=== PATIENT | female | born 1985 | race Caucasian/White ===

== ENCOUNTER → 2017-02-08 | Outpatient (CLI) | payer OTHER | LOC: HPND 08:03 | PROVIDERS: ATTEND Obstetrics & Gynecology | DX: O35.2XX0 Maternal care for (suspected) hereditary disease in fetus, not applicable or unspecified (principal); Z3A.00 Weeks of gestation of pregnancy not specified | CPT/HCPCS: 36416; 76813 ==

== ENCOUNTER → 2017-04-13 | Outpatient (CLI) | payer OTHER | LOC: HPND 07:53 | PROVIDERS: ATTEND Obstetrics & Gynecology | DX: O35.2XX0 Maternal care for (suspected) hereditary disease in fetus, not applicable or unspecified (principal) | CPT/HCPCS: 76816; 76825; 76827; 93325 ==

== ENCOUNTER 2017-08-11 18:59 | Inpatient (IN) | payer OTHER ==
[2017-08-11] VITALS (9 sets, daily range): BP systolic 121–164; BP diastolic 61–84; PULSE 58–82; RESP 18
[~2017-08-11] VITALS: Ht 154.9 cm; Wt 101.0 kg
[2017-08-11] MEDS ORDERED: LACTATED RINGER'S 1000 ML INJ 1,000 ML IV SCH (19:39)
[2017-08-11] MEDS ORDERED: LACTATED RINGER'S 1000 ML INJ 1,000 ML IV PRN (19:39)
[2017-08-11] MEDS ORDERED: OXYTOCIN 30 UNITS-500ML PREMIX 500 ML IV SCH (19:45)
[2017-08-11] MEDS ORDERED: OXYTOCIN 30 UNITS-500ML PREMIX 500 ML IV ONE (19:45)
[2017-08-11] MEDS ORDERED: SODIUM CHLORID 0.9% 500 ML INJ 500 ML IV PRN (19:45)
[2017-08-11] MEDS ORDERED: LIDOCAINE HCL 1% 50 ML VIAL I-DERMAL PRN (19:45)
[2017-08-11] MEDS ORDERED: LIDOCAINE HCL 1% 50 ML VIAL INFIL PRN (19:45)
[2017-08-11] MEDS ORDERED: CITRIC ACID-SODIUM CITRATE LIQ 30 ML UDC PO SCH (19:45)
[2017-08-11] MEDS ORDERED: MINERAL OIL 10 ML VIAL TOPICAL PRN (19:45)
[2017-08-11] MEDS ORDERED: SODIUM CHLOR 0.9% 1000 ML INJ 1,000 ML IV PRN (19:59)
--- NOTE | 2017-08-11 20:18 | HHI.HP ---
HPI Chief Complaint oligohydramnios Travel History International Travel<30 Days: No Contact w/Intl Traveler<30Days: No Known Affected Area: No History of Present Illness HPI 31 yo G1 with iup 40wbeing admitted for iol for oligohydramnios and elevated UA dopplers. She was also noted to have BP above her baseline, 130/80, tr protein, and has headaches over last 2 days. no visual changes or ruq pain. PNC initiated at 9 weeks. She has a fam hx of DS and a sister w multiple anomalies at . 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 [employer] Alcohol Use: No Tobacco Use: No Substance Abuse: No Allergies-Medications (Allergen,Severity, Reaction): Coded Allergies: No Known Allergies (Unverified , 08/11/17) Review of Systems General / Constitutional: No: Fever, Weight Gain, Chills, Other Eyes: No: Diploplia, Blurred Vision, Visual changes, Pain, Photophobia HENT: Headaches, No: Vertigo, Lightheadedness Cardiovascular: No: Irregular Rhythm, Chest Pain or Discomfort, Palpitations, Tachycardia, Syncope, Varicosities, Edema, Cyanosis Respiratory: No: Cough, Short of Breath, Other Gastrointestinal: No: Nausea, Vomiting, Diarrhea Genitourinary: No: Decreased Urinary Output, Oliguria Musculoskeletal: No: Limited ROM, Weakness, Cramping, Edema, Pain Skin: No Rash, No Itching, No Dryness, No Lumps, No Change in Pigmentation, No Change in Nails, No Alopecia, No Lesions Neurologic: No: Weakness, Dizziness, Syncope, Focal Abnormalities, Coordination Problem, Headache, Slurred Speech, Seizures Psychiatric: No: Depression, Suicidal Ideations, Homicidal Ideation Endocrine: No: Heat Intolerance, Cold Intolerance, Polydipsia, Polyuria, Other Physical Exam Narrative GENERAL: Well-nourished, well-developed patient. SKIN: Warm and dry. HEAD: Normocephalic and atraumatic. EYES: No scleral icterus. No injection or drainage. ENT: No nasal drainage noted. Mucous membranes pink. Airway patent. NECK: Supple, trachea midline. No JVD. CARDIOVASCULAR: Regular rate and rhythm without murmurs, gallops, or rubs. RESPIRATORY: Breath sounds equal bilaterally. No accessory muscle use. BREASTS: defer ABDOMEN/GI: Abdomen soft, non-tender, bowel sounds present, no rebound, no guarding Gravid to 40weeks size Fundal Height: [-] GENITOURINARY: External Genitalia: intact and normal in appearance BUS glands: [-] Cervix: 3-4/50/-3 Dilatation: [-] Effacement: [-] Station: [-] Presentation: [facility] Membranes: [intact Uterine Contractions: [-] FHT's: bpp 6/8 in office for low kary Category: [-] Baseline: [-] Reactive: [-] Variability: [-] Decels: [-] EXTREMITIES: No cyanosis or edema. BACK: Nontender without obvious deformity. No CVA tenderness. NEUROLOGICAL: Awake and alert. Motor and sensory grossly within normal limits. Five out of 5 muscle strength in all muscle groups. Normal speech. Caprini VTE Risk Assessment Caprini VTE Risk Assessment: No/Low Risk (score <= 1) Caprini Risk Assessment Model Point Value = 1 Point Value = 2 Point Value = 3 Point Value = 5 Age 41-60 Minor surgery BMI > 25 kg/m2 Swollen legs Varicose veins or History of unexplained or recurrent spontaneous Oral contraceptives or hormone replacement Sepsis (< 1 month) Serious lung disease, including pneumonia (< 1 month) Abnormal pulmonary function Acute myocardial infarction Congestive heart failure (< 1 month) History of inflammatory bowel disease Medical patient at bed rest Age 61-74 Arthroscopic surgery Major open surgery (> 45 min) Laparoscopic surgery (> 45 min) Malignancy Confined to bed (> 72 hours) Immobilizing plaster cast Central venous access Age >= 75 History of VTE Family history of VTE Factor V Leiden Prothrombin [id number] Lupus anticoagulant Anticardiolipin antibodies Elevated serum homocysteine Heparin-induced thrombocytopenia Other congenital or acquired thrombophilia Stroke (< 1 month) Elective arthroplasty Hip, pelvis, or leg fracture Acute spinal cord injury (< 1 month) Prophylaxis Regimen Total Risk Factor Score Risk Level Prophylaxis Regimen 0-1 Low Early ambulation 2 Moderate Order ONE of the following: *Sequential Compression Device (SCD) *Heparin 5000 units SQ BID 3-4 Higher Order ONE of the following medications: *Heparin 5000 units SQ TID *Enoxaparin/Lovenox 40 mg SQ daily (WT < 150 kg, CrCl > 30 mL/min) *Enoxaparin/Lovenox 30 mg SQ daily (WT < 150 kg, CrCl > 10-29 mL/min) *Enoxaparin/Lovenox 30 mg SQ BID (WT < 150 kg, CrCl > 30 mL/min) AND/OR *Sequential Compression Device (SCD) 5 or more Highest Order ONE of the following medications: *Heparin 5000 units SQ TID (Preferred with Epidurals) *Enoxaparin/Lovenox 40 mg SQ daily (WT < 150 kg, CrCl > 30 mL/min) *Enoxaparin/Lovenox 30 mg SQ daily (WT < 150 kg, CrCl > 10-29 mL/min) *Enoxaparin/Lovenox 30 mg SQ BID (WT < 150 kg, CrCl > 30 mL/min) AND *Sequential Compression Device (SCD) Data Data Vital Signs Reviewed: Yes Orders Orders Admit To Inpatient (08/11/17 ) Vital Signs (Adult) .Per protocol (08/11/17 19:39) Activity Oob Ad Lizzette (08/11/17 19:39) Heart (08/11/17 19:39) Amnioinfusion (08/11/17 19:39) Urinary Catheter Management .ONCE (08/11/17 19:39) Lactated Ringer's 1000 Ml Inj (Lr 1000 M (08/11/17 19:39) Lactated Ringer's 1000 Ml Inj (Lr 1000 M (08/11/17 19:39) Sodium Chlorid 0.9% 500 Ml Inj (Ns 500 M (08/11/17 19:45) Sodium Chlor 0.9% 1000 Ml Inj (Ns 1000 M (08/11/17 19:59) Lidocaine 1% Inj (50 Ml) (Xylocaine 1% I (08/11/17 19:45) Citric Acid-Sodium Citrate Liq (Bicitra (08/11/17 19:45) Fentanyl Inj (Fentanyl Inj) (08/11/17 19:45) Fentanyl Inj (Fentanyl Inj) (08/11/17 19:45) Complete Blood Count With Diff (08/11/17 19:39) Hold Clot (08/11/17 19:39) Abo/Rh Blood Type (08/11/17 19:39) Urinalysis - C+S If Indicated (08/11/17 19:39) Drug Screen, Random Urine (08/11/17 19:39) Resp Oxygen Non Rebreathe Mask (08/11/17 ) ^ Epidural / Intrathecal Infus (08/11/17 19:39) Oxytocin 30 Units-500ml Premix (Pitocin (08/11/17 19:45) Lidocaine 1% Inj (50 Ml) (Xylocaine 1% I (08/11/17 19:45) Light Mineral Oil (Muri-Lube Oil) (08/11/17 19:45) ^ Non Stress Test (08/11/17 19:39) Response To Medication .Post New Med Administration, Reaction (08/11/17 19:39) ^ Discontinue Medication (08/11/17 19:39) Oxytocin 30 Units-500ml Premix (Pitocin (08/11/17 19:45) Inpatient Certification (08/11/17 ) Specimen To Be Collected PRN (08/11/17 19:39) Specimen To Be Collected PRN (08/11/17 19:39) Comprehensive Metabolic Panel (08/11/17 19:42) Uric Acid (08/11/17 19:42) Protein Creat Ratio, Random Ur (08/11/17 19:42) Group B Strep: Negative Assessment/Plan Problem List: (1) Labor and delivery, indication for care ICD Codes: O75.9 - Complication of labor and delivery, unspecified (2) Oligohydramnios ICD Codes: O41.00X0 - Oligohydramnios, unspecified trimester, not applicable or unspecified Qualifiers: Assessment and Plan 31 yo G1 here for iol for oligohydramnios and elevated umbilical artery dopplers at term, edc 08/11/17 1) IOL - will start pitocin and arom 2) elevated bp above baseline -will order pih labs and p:c ratio 3) gbs neg 4) fetus cephalic male, efw at 33 w was 38%Teresita Sanchez MD Aug 11, 2017 20:18
[2017-08-11] MEDS ORDERED: OXYTOCIN 30 UNITS/NS 500ML PREMIX IV SCH (20:30)
[2017-08-11 20:45] LABS: AUTOMATED NEUTROPHIL # 11.5 TH/MM3 (1.8-7.7); BASOPHIL % 0.3 % (0.0-2.0); EOSINOPHIL % 0.2 % (0.0-4.0); HEMATOCRIT 35.7 % (35.0-46.0); HEMO FLAGS DIFF FINAL; LYMPHOCYTE # 2.2 TH/MM3 (1.0-4.8); MEAN CELL VOLUME 89.3 FL (80.0-100.0); MEAN CORPUSCULAR HEMOGLOBIN 29.1 PG (27.0-34.0); MEAN CORPUSCULAR HGB CONC 32.7 % (32.0-36.0); MONO % 5.5 % (0.0-8.0); PLATELET COUNT 275 TH/MM3 (150-450); WHITE BLOOD COUNT 14.6 TH/MM3 (4.0-11.0)
[2017-08-11 20:47] LABS: BACTERIA, URINE OCC /hpf; BLOOD, URINE MOD (NEG); COMMENT (UR) CULTURE INDICATED; CULTURE IF INDICATED CULTURE INDICATED; GLUCOSE,URINE NEG (NEG); KETONE, URINE TRACE mg/dL (NEG); MUCUS URINE FEW /lpf (OCC); NITRITE,URINE NEG (NEG); SQUAMOUS EPITHELIAL CELL URINE 4 /hpf (0-5); URINE COLOR YELLOW (YELLW/STRAW)
[2017-08-11 21:00] LABS: ALT (GPT) 12 U/L (10-53); ANION GAP 9 MEQ/L (5-15); AST (GOT) 15 U/L (15-37); BICARBONATE 23.2 MEQ/L (21.0-32.0); BLOOD UREA NITROGEN 10 MG/DL (7-18); CHLORIDE 103 MEQ/L (98-107); GLOMERULAR FILTRATION RATE 103 ML/MIN (>89); POTASSIUM 3.6 MEQ/L (3.5-5.1); SODIUM (NA) 135 MEQ/L (136-145)
[2017-08-11 21:03] LABS: ALKALINE PHOSPHATASE 318 U/L (45-117); TOTAL BILIRUBIN ADULT 0.2 MG/DL (0.2-1.0)
[2017-08-11] MEDS ORDERED: NIFEdipine 10 MG CAP ONE (23:18)
[2017-08-11] MEDS ORDERED: NIFEdipine 10 MG CAP PO ONE (23:30)
[2017-08-12] VITALS (61 sets, daily range): BP systolic 68–170; BP diastolic 30–87; PULSE 52–91; RESP 16–20; TEMP 98–98.8; O2SAT 96–100
--- NOTE | 2017-08-12 07:56 | PD.LABORPN ---
Subjective Subjective requesting pain meds Objective Vital Signs Vital Signs Date Time Temp Pulse Resp B/P (MAP) Pulse Ox O2 Delivery O2 Flow Rate FiO2 08/12/17 07:35 98.4 18 08/12/17 07:34 56 160/79 (106) 08/12/17 03:42 98.2 18 08/12/17 03:42 75 156/83 (107) 08/12/17 01:34 98.1 18 08/12/17 01:31 68 158/79 (105) 08/12/17 00:44 18 08/12/17 00:43 65 154/73 (100) 08/12/17 00:12 64 153/80 (104) Objective Pelvic Exam: Cervix: [-] Dilatation: [-] 6-7 Effacement: [-] 80 Station: [-] -2 Presentation: [-] vtx Membranes: [intact or ruptured] arom clear, scant Uterine Contractions: [-] q3min FHT's: Category: [-] 1 Baseline: [-] Reactive: [-] R Variability: [-] good Decels: [-] Weeks Gestation: 40 Gest Age Assessed Date: Aug 12, 2017 Gest Age Assessed Time: 07:54 Pt started active labor?: Yes Active labor start date: Aug 12, 2017 Active labor start time: 07:54 Medical induction of labor?: Yes Medical induction start date: Aug 11, 2017 Medical induction start time: 21:00 Artificial rupture of membrane: Yes Artificial ROM date: Aug 12, 2017 Artifical ROM time: 07:40 Assessment/Plan Problem List: (1) Labor and delivery, indication for care ICD Codes: O75.9 - Complication of labor and delivery, unspecified (2) Oligohydramnios ICD Codes: O41.00X0 - Oligohydramnios, unspecified trimester, not applicable or unspecified Qualifiers: (3) state, incidental ICD Codes: Z33.1 - state, incidental Assessment and Plan continue pitocin, at 6mu now, arom clear, analgesia prn anticipate Noemi Childress MD Aug 12, 2017 07:56
[2017-08-12] MEDS ORDERED: fentaNYL 2MCG-BUPIV 0.125% INJ 100 ML ONE (08:07)
[2017-08-12] MEDS ORDERED: ePHEDrine/NS 25 MG/5 ML SYR ONE (08:07)
[2017-08-12] MEDS ORDERED: ePHEDrine/NS 25 MG/5 ML SYR IV PUSH PRN (09:30)
[2017-08-12] MEDS ORDERED: fentaNYL 2MCG-BUPIV 0.125% 100 ML EPIDURAL SCH (09:30)
[2017-08-12] MEDS ORDERED: NO SYSTEM NARCOTICS PRN (09:30)
[2017-08-12] MEDS ORDERED: DO NOT ADMINISTER ANTICOAGULANTS PRN (09:30)
[2017-08-12] MEDS ORDERED: ceFAZolin 2 GM PREMIX 50 ML IV SCH (13:15)
[2017-08-12] MEDS ORDERED: LACTATED RINGER'S 1000 ML IV ONE (13:15)
[2017-08-12] MEDS ORDERED: OXYTOCIN 30 UNITS/NS 500ML PREMIX IV SCH (13:15)
[2017-08-12] MEDS ORDERED: CITRIC ACID-SODIUM CITRATE LIQ 30 ML UDC PO SCH (13:15)
[2017-08-12] MEDS ORDERED: EPIDURAL-DO NOT ADMINISTER ANTICOAGULANTS PRN (13:40)
[2017-08-12] MEDS ORDERED: EPIDURAL-NALOXONE HCL 0.4 MG/ML AMP IV PUSH PRN (13:40)
[2017-08-12] MEDS ORDERED: EPIDURAL-NO SYSTEMIC NARCOTICS PRN (13:40)
[2017-08-12] MEDS ORDERED: EPIDURAL-DIPHENHYDRAMINE HCL 50 MG CAP PO PRN (13:40)
[2017-08-12] MEDS ORDERED: EPIDURAL-DIPHENHYDRAMINE HCL 50 MG/ML VIAL IV PUSH PRN (13:40)
[2017-08-12] MEDS ORDERED: LACTATED RINGER'S 1000 ML IV SCH (13:45)
[2017-08-12] MEDS ORDERED: SIMETHICONE 80 MG CHEWABLE TAB PO PRN (14:00)
[2017-08-12] MEDS ORDERED: SODIUM CHLORIDE 0.9% FLUSH 10 ML FLUSH IV FLUSH PRN (14:00)
[2017-08-12] MEDS ORDERED: KETOROLAC TROMETHAMINE 60 MG/2 ML (IM) VIAL IM PRN (14:00)
[2017-08-12] MEDS ORDERED: ACETAMINOPHEN 325 MG TAB PO PRN (14:00)
[2017-08-12] MEDS ORDERED: oxyCODONE/ACETAMINOPHEN 5 MG/325 MG TAB PO PRN (14:00)
[2017-08-12] MEDS ORDERED: ZOLPIDEM TARTRATE 5 MG TAB PO PRN (14:00)
[2017-08-12] MEDS ORDERED: OXYTOCIN 30 UNITS-500ML PREMIX 500 ML IV ONE (14:00)
[2017-08-12] MEDS ORDERED: ONDANSETRON HCL 4 MG/2 ML VIAL IV PUSH PRN (14:00)
--- NOTE | 2017-08-12 14:07 | PD.OB.DELI ---
Procedure Note Section Procedure Pre Op Diagnosis: (1) Oligohydramnios (2) state, incidental Post Op Diagnosis: Performed by Noemi Davis Procedure: Primary Low Transverse Sec Indication for delivery: Nonreassuring heart tracing Previous condition: None Informed consent obtained: For procedure Confirmed correct: Time-out taken Anesthesia: Epidural Urinary catheter: Inserted using sterile technique, ml urine output (400) Sterile preparation: Duraprep Position: Supine with wedge to right side Operative Features Skin Incision: Pfannenstiel Uterine Incision: Low transverse w/knife / scissors Membranes Ruptured: Previously Presentation: Vertex Delivery date: Aug 12, 2017 Delivery time: 13:34 : Male One Minute : 8 Five Minute : 9 Weight: 7-2 Status of : Viable Placenta delivered: Intact Estimated blood loss: 500cc Procedure tolerated: Well Maternal Condition: Stable Condition: Stable Procedure in detail see dictation Noemi Davis MD Aug 12, 2017 14:07
--- NOTE | 2017-08-12 14:53 | MP ---
cc: REX DAVIS DATE OF SURGERY: 08/12/2017 PREOPERATIVE DIAGNOSIS Intrauterine at 40 weeks, non-reassuring heart rate. POSTOPERATIVE DIAGNOSIS Intrauterine at 40 weeks, non-reassuring heart rate. PROCEDURE Primary lower segment transverse section via Pfannenstiel skin incision. SURGEON Dr. Davis. ANESTHESIA Epidural. FLUIDS 1000 cc crystalloid. ESTIMATED BLOOD LOSS 500 cc. URINE OUTPUT 400 cc clear yellow at the end of the procedure. FINDINGS A live male was delivered vertex presentation, Apgars 8 at one minute and 9 at five minutes. weight was 7 pounds 2 ounces. A large caput was noted at 9 cm cervical dilatation. DETAILS OF PROCEDURE The patient was taken to the operating room where epidural anesthesia was found to be adequate. She was then prepped and draped in the normal sterile fashion in the dorsal supine position with a leftward tilt. A Pfannenstiel skin incision was made with a scalpel and carried down to the underlying layer of fascia. The fascia was nicked in the midline. The incision was extended laterally with Zhao scissors. Attention was turned to the inferior aspect of the incision which was grasped with Jayde clamps, elevated and the rectus muscle dissected off sharply. Attention was turned to the superior aspect of the incision which was grasped with Jayde clamps, elevated and the rectus muscle dissected off sharply. The rectus muscles were in the midline. The peritoneum was identified, grasped between two Marcela clamps, elevated and entered sharply with Metzenbaum scissors. This incision was extended superiorly and inferiorly with good visualization of the bladder. The bladder blade was inserted. The vesicouterine peritoneum was identified, grasped with pickups and entered sharply with Metzenbaum scissors. This incision extended laterally. A bladder flap was created digitally. The lower uterine segment was incised in a transverse fashion. This incision was extended laterally with bandage scissors. The vertex was then delivered. A large caput was noted. The oral and nasopharynx were bulb suctioned. The shoulders were delivered atraumatically. Delayed cord clamping was performed for 45 seconds. The cord was clamped x2 and cut. The was handed off to the awaiting nurse. The placenta was delivered manually and sent for donation. The uterus was cleared of all clots and debris. The uterine incision was repaired in two layers with #1 Vicryl. Hemostasis was assured. The gutters were cleared of all clots and debris. The fascia was repaired in a running fashion with 0 Vicryl. The skin was closed with magdalene. A pressure dressing was applied. The sponge, lap, needle and instrument counts were correct x3. The patient was transferred to the recovery room in stable condition. MD RENATO Xiong/MEET /2:08 PM /2:43 PM
[2017-08-12] MEDS: LACTATED RINGER'S 1000 ML INJ 1,000 ML IV SCH (19:00)
[2017-08-12] MEDS: SODIUM CHLORIDE 0.9% FLUSH 10 ML FLUSH IV FLUSH SCH (19:42)
[2017-08-12] MEDS ORDERED: NIFEdipine 10 MG CAP PO ONE (20:15)
[2017-08-12] MEDS: IBUPROFEN 600 MG TAB PO PRN (22:47)
[2017-08-12] MEDS: oxyCODONE/ACETAMINOPHEN 5 MG/325 MG TAB PO PRN (22:47)
[2017-08-13] MEDS ORDERED: OXYTOCIN 30 UNITS-500ML PREMIX 500 ML IV PRN
[2017-08-13 00:26] VITALS: BP 106/55; PULSE 61; RESP 18; TEMP 98.6
[2017-08-13] MEDS: IBUPROFEN 600 MG TAB PO PRN ×3 (04:20→20:44)
[2017-08-13] MEDS: oxyCODONE/ACETAMINOPHEN 5 MG/325 MG TAB PO PRN ×3 (04:20→20:44)
[2017-08-13] MEDS: LACTATED RINGER'S 1000 ML INJ 1,000 ML IV SCH (05:00)
[2017-08-13 06:08] LABS: AUTOMATED NEUTROPHIL # 13.3 TH/MM3 (1.8-7.7); BASOPHIL % 0.2 % (0.0-2.0); EOSINOPHIL % 0.1 % (0.0-4.0); HEMATOCRIT 29.2 % (35.0-46.0); HEMO FLAGS DIFF FINAL; LYMPH % 13.7 % (9.0-44.0); LYMPHOCYTE # 2.3 TH/MM3 (1.0-4.8); MEAN CELL VOLUME 90.2 FL (80.0-100.0); MEAN CORPUSCULAR HEMOGLOBIN 29.8 PG (27.0-34.0); MEAN CORPUSCULAR HGB CONC 33.1 % (32.0-36.0); MONO % 5.7 % (0.0-8.0); NEUT % 80.3 % (16.0-70.0); PLATELET COUNT 237 TH/MM3 (150-450); RED BLOOD COUNT 3.24 MIL/MM3 (4.00-5.30); RED CELL DISTRIBUTION WIDTH 12.9 % (11.6-17.2); WHITE BLOOD COUNT 16.6 TH/MM3 (4.0-11.0)
[2017-08-13 08:00] VITALS: BP 119/64; PULSE 56; RESP 18; TEMP 98
--- NOTE | 2017-08-13 08:55 | HHI.OB ---
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 Objective Vitals/I&O Vital Signs Date Time Temp Pulse Resp B/P (MAP) Pulse Ox O2 Delivery O2 Flow Rate FiO2 08/13/17 00:26 61 18 106/55 (72) 08/13/17 00:26 98.6 08/12/17 21:00 78 136/69 (91) 08/12/17 19:44 162/77 (105) 08/12/17 19:44 98.1 75 17 170/87 (114) 96 08/12/17 16:15 98.0 96 08/12/17 16:15 67 16 126/69 (88) 08/12/17 15:15 72 18 106/52 (70) 100 08/12/17 15:00 77 18 100 08/12/17 15:00 119/62 (81) 08/12/17 14:30 71 20 107/58 (74) 100 08/12/17 14:18 66 18 119/57 (77) 99 08/12/17 14:12 98.6 70 18 116/53 (74) 100 08/12/17 13:01 61 157/79 (105) 08/12/17 12:46 73 157/76 (103) 08/12/17 12:45 98.8 08/12/17 12:45 20 08/12/17 12:31 63 144/78 (100) 08/12/17 12:16 60 130/69 (89) 08/12/17 12:03 60 152/65 (94) 08/12/17 11:31 52 118/61 (80) 08/12/17 11:16 55 143/59 (87) 08/12/17 11:01 59 130/69 (89) 08/12/17 10:56 98.8 08/12/17 10:56 20 08/12/17 10:46 65 108/48 (68) 08/12/17 10:31 92/45 (61) 08/12/17 10:01 56 107/44 (65) 08/12/17 10:00 59 08/12/17 09:55 62 08/12/17 09:50 59 08/12/17 09:46 64 123/52 (75) 08/12/17 09:45 69 08/12/17 09:40 88 08/12/17 09:35 68 149/68 (95) 08/12/17 09:35 66 08/12/17 09:31 75 149/80 (103) 08/12/17 09:30 65 08/12/17 09:25 82 08/12/17 09:20 70 08/12/17 09:16 57 145/63 (90) 08/12/17 09:15 62 08/12/17 09:10 69 08/12/17 09:05 64 08/12/17 09:00 66 08/12/17 09:00 77 139/77 (97) 08/12/17 09:00 98.8 18 08/12/17 08:55 70 Result Diagram: 08/13/17 0542 08/11/172000 Objective Remarks GENERAL: Well-nourished, well-developed patient. CARDIOVASCULAR: Regular rate and rhythm without murmurs, gallops, or rubs. RESPIRATORY: Breath sounds equal bilaterally. No accessory muscle use. ABDOMEN/GI: Abdomen soft, non-tender, bowel sounds present. Incision: dressing Clean, dry and intact. Fundus: Firm, non-tender at umbilicus. GENITOURINARY: Light to moderate bleeding. EXTREMITIES: No cyanosis or edema, non-tender, without signs of DVT. Medications and IVs Current Medications Medications (Trade) Dose Ordered Sig/David Route Start Time Stop Time Status Last Admin Lactated Ringer's 1,000 ml @ 100 mls/hr Q10H IV 08/12/17 19:00 08/13/17 14:59 08/12/17 19:00 Oxytocin 500 ml @ 100 mls/hr UNSCH X1 PRN IV 08/13/17 00:00 08/13/17 23:59 (NS Flush) 2 ml BID IV FLUSH 08/12/17 21:00 (NS Flush) 2 ml UNSCH PRN IV FLUSH 08/12/17 14:00 (Mylicon Chew) 80 mg QID PRN PO 08/12/17 14:00 (Tylenol) 650 mg Q6H PRN PO 08/12/17 14:00 (Motrin) 600 mg Q6H PRN PO 08/12/17 14:00 08/13/17 04:20 (Toradol Inj) 60 mg UNSCH X1 PRN IM 08/12/17 14:00 08/13/17 13:59 (Percocet 5-325 Mg) 1 tab Q4H PRN PO 08/12/17 14:00 08/13/17 04:20 (Percocet 5-325 Mg) 2 tab Q4H PRN PO 08/12/17 14:00 (Hina-Colace) 2 tab Q12H PRN PO 08/12/17 14:00 (Ambien) 5 mg HS PRN PO 08/12/17 14:00 (M-M-R Ii Inj) 0.5 ml ONCE ONCE SQ 08/13/17 16:00 08/13/17 16:01 (Boostrix Inj) 0.5 ml ONCE ONCE IM 08/13/17 16:00 08/13/17 16:01 (Zofran Inj) 4 mg Q6H PRN IV PUSH 08/12/17 14:00 Miscellaneous Information NO SYSTEMIC NARCOTICS TO BE GIVEN FO... UNSCH PRN .XX 08/12/17 13:40 08/13/17 13:39 (Narcan Inj) 0.4 mg UNSCH PRN IV PUSH 08/12/17 13:40 08/13/17 13:39 (Benadryl Inj) 25 mg Q6H PRN IV PUSH 08/12/17 13:40 08/13/17 13:39 (Benadryl) 50 mg Q6H PRN PO 08/12/17 13:40 08/13/17 13:39 Miscellaneous Information ALL NURSING DEPARTMENTS UNSCH PRN .XX 08/12/17 13:40 08/13/17 13:39 (Flu (Quadrivalent) Vaccine Inj) 0.5 ml ONCE ONCE IM 08/13/17 10:00 08/13/17 10:01 Assessment/Plan Problem List: (1) Labor and delivery, indication for care ICD Codes: O75.9 - Complication of labor and delivery, unspecified (2) Oligohydramnios ICD Codes: O41.00X0 - Oligohydramnios, unspecified trimester, not applicable or unspecified Qualifiers: (3) state, incidental ICD Codes: Z33.1 - state, incidental (4) delivery delivered ICD Codes: O82 - Encounter for delivery without indication Assessment and Plan 31 yo G1 s/p primary LSTC for NRFHR POD #1 continue post op care, ambulate, analgesia prn Discharge Planning routine pod #3 Attending Attestation pt seen by Noemi Waterman MD Aug 13, 2017 08:55
[2017-08-13] MEDS ORDERED: INFLUENZA VIRUS VACCINE (QUADRIVALENT) 0.5 ML SYR IM ONE (10:00)
[2017-08-13] MEDS: SODIUM CHLORIDE 0.9% FLUSH 10 ML FLUSH IV FLUSH SCH (11:22)
[2017-08-13] MEDS: DOCUSATE SODIUM 50 MG/SENNA 8.6 MG TAB PO PRN (12:46)
[2017-08-13] MEDS ORDERED: MEASLES, MUMPS, RUBELLA VACCINE 0.5 ML VIAL SQ ONE (16:00)
[2017-08-13] MEDS ORDERED: DIPHTH/TETANUS/ACEL PERTUSSIS (BOOSTER) 0.5 ML VIAL/PFS IM ONE (16:00)
[2017-08-13 20:44] VITALS: BP 126/71; PULSE 70; RESP 18; TEMP 98.5
[2017-08-14] MEDS: IBUPROFEN 600 MG TAB PO PRN ×3 (02:55→17:24)
[2017-08-14] MEDS: oxyCODONE/ACETAMINOPHEN 5 MG/325 MG TAB PO PRN ×3 (02:56→17:24)
[2017-08-14 07:55] VITALS: BP 122/65; PULSE 71; RESP 20; TEMP 98.2
[2017-08-14 08:15] VITALS: BP 122/65; PULSE 71; RESP 20; TEMP 98.2
--- NOTE | 2017-08-14 09:27 | HHI.OB ---
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 CARDIOVASCULAR: Regular rate and rhythm without murmurs, gallops, or rubs. RESPIRATORY: Breath sounds equal bilaterally. No accessory muscle use. ABDOMEN/GI: Abdomen soft, non-tender, bowel sounds present. Incision: magdalene Clean, dry and intact. Fundus: Firm, non-tender at umbilicus. GENITOURINARY: Light to moderate bleeding. EXTREMITIES: No cyanosis or edema, non-tender, without signs of DVT. Medications and IVs Current Medications Medications (Trade) Dose Ordered Sig/David Route Start Time Stop Time Status Last Admin (NS Flush) 2 ml BID IV FLUSH 08/12/17 21:00 (NS Flush) 2 ml UNSCH PRN IV FLUSH 08/12/17 14:00 (Mylicon Chew) 80 mg QID PRN PO 08/12/17 14:00 (Tylenol) 650 mg Q6H PRN PO 08/12/17 14:00 (Motrin) 600 mg Q6H PRN PO 08/12/17 14:00 08/14/17 02:55 (Percocet 5-325 Mg) 1 tab Q4H PRN PO 08/12/17 14:00 08/14/17 02:56 (Percocet 5-325 Mg) 2 tab Q4H PRN PO 08/12/17 14:00 (Hina-Colace) 2 tab Q12H PRN PO 08/12/17 14:00 08/13/17 12:46 (Ambien) 5 mg HS PRN PO 08/12/17 14:00 (Zofran Inj) 4 mg Q6H PRN IV PUSH 12/1/17 14:00 Assessment/Plan Problem List: (1) Labor and delivery, indication for care ICD Codes: O75.9 - Complication of labor and delivery, unspecified (2) Oligohydramnios ICD Codes: O41.00X0 - Oligohydramnios, unspecified trimester, not applicable or unspecified Qualifiers: (3) state, incidental ICD Codes: Z33.1 - state, incidental (4) delivery delivered ICD Codes: O82 - Encounter for delivery without indication Assessment and Plan 31 yo G1 s/p primary LSTC for NRFHR POD #2 continue post op care, ambulate, analgesia prn Discharge Planning routine pod #3 Attending Attestation pt seen by Noemi Waterman MD Aug 14, 2017 09:27
[2017-08-14] MEDS: SODIUM CHLORIDE 0.9% FLUSH 10 ML FLUSH IV FLUSH SCH ×2 (10:56→21:00)
[2017-08-14] MEDS: DOCUSATE SODIUM 50 MG/SENNA 8.6 MG TAB PO PRN ×2 (10:58→22:56)
[2017-08-14 19:50] VITALS: BP 140/72; PULSE 74; RESP 18; TEMP 98.8
[2017-08-15] MEDS: IBUPROFEN 600 MG TAB PO PRN ×2 (02:10→10:40)
[2017-08-15] MEDS: oxyCODONE/ACETAMINOPHEN 5 MG/325 MG TAB PO PRN ×2 (02:10→10:40)
[2017-08-15 08:00] VITALS: BP 144/76; PULSE 69; RESP 18; TEMP 97.8
[2017-08-15] MEDS ORDERED: OXYC1TAB63 PO (08:49)
--- NOTE | 2017-08-15 08:49 | HHI.DCPOC ---
Discharge Care Plan Report Symptoms to Your Doctor -Temperature above 100.5 degrees -Redness, of incision or excessive or foul smelling drainage -Unusual pain or calf pain -Increased vaginal bleeding -Painful or difficulty urinating -Feelings of extreme sadness or anxiety after 2 weeks Goals to Promote Your Health * To prevent worsening of your condition and complications * To maintain your health at the optimal level Directions to Meet Your Goals Take your medications as prescribed Follow your dietary instruction Follow activity as directed Ensure plenty of rest for recovery Drink fluids for hydration Keep your appointments as scheduled Take your immunizations and boosters as scheduled If your symptoms worsen call your PCP, if no PCP go to Urgent Care Center or Emergency Room Smoking is Dangerous to Your Health. Avoid second hand smoke Call the 24-hour crisis hotline for domestic abuse at Radha Lovell MD Aug 15, 2017 08:49
[2017-08-15] MEDS: DOCUSATE SODIUM 50 MG/SENNA 8.6 MG TAB PO PRN (10:40)
== END 2017-08-15 13:00 | disposition home or self-care (01) | DRG 766 ==
LOC: H2EA 18:59 → H1EA 08-12 15:52
PROVIDERS: ADMIT Obstetrics & Gynecology; ATTEND Obstetrics & Gynecology
PROC: 10D00Z1 Extraction of Products of Conception, Low, Open Approach (ICD-10-PCS; principal; 2017-08-12)
PROC: 3E0R3BZ Introduction of Anesthetic Agent into Spinal Canal, Percutaneous Approach (ICD-10-PCS; 2017-08-12)
PROC: 00HU33Z Insertion of Infusion Device into Spinal Canal, Percutaneous Approach (ICD-10-PCS; 2017-08-12)
DX: O41.03X0 Oligohydramnios, third trimester, not applicable or unspecified (principal); E28.2 Polycystic ovarian syndrome; Z37.0 Single live birth; O76 Abnormality in fetal heart rate and rhythm complicating labor and delivery; O75.9 Complication of labor and delivery, unspecified; Z3A.40 40 weeks gestation of pregnancy
CPT/HCPCS: 59025; 80053; 80307; 81001; 82570; 84156; 84550; 85025; 86850; 86900; 86901; 87086; 90686; 90715; J2590; J3010; J7120; Q2038